=== PATIENT | female | born 1965 | race Caucasian/White ===

== ENCOUNTER → 2017-01-29 | Outpatient (CLI) | payer BC, OTHER ==
[~2017-01-29] VITALS: Ht 165.1 cm; Wt 99.8 kg
[~2017-01-29] MED LIST: BIOFREEZE118 ML TP; IBUPROFEN 200200 M1 PO; LEVOTHYROXINE0.05 MG PO; MOBIC15 MG PO; TRAMADOL 50 MG50 MG PO; TRAMADOL200 MG PO
--- NOTE | ~2017-01-29 | HPC ---
[facility] [place] [address] PAIN MANAGEMENT CONSULTATION Name: XIOMARA DIAZ [facility] [id number] Admission: 01/29/17 Attend Phys: Michael Jane DO Discharge: Date of : 65 Report #: [id number] THIS REPORT FOR: //name// CC: Eddi Jane HISTORY OF PRESENT ILLNESS: The patient is a very pleasant 51-year-old female, seen in consultation at the request of Dr. Carreno for evaluation of pain primarily in low back. The patient notes, it has been present "for years", but has been getting worse over the past 6 months without antecedent trauma and/or overuse. Pain is primarily at the belt line and below, does not radiate in her legs. She has no paresthesia, weakness, bowel or bladder continence changes. She relates the fact, that she had fallen at age 13, and had a "fractured tailbone", as the source of her chronic back pain. She has used Biofreeze, Advil, and massage. Physical therapy in April all with nominal efficacy. She describes continuous, steady, burning pain, that she rates anywhere from 5-9 on a 0-10 visual analog scale. Incidentally, she notes she has some chronic right knee pain, and just finished a series of 3 viscosupplementation injections about 2 weeks ago. The patient notes the pain is exacerbated with bending and standing, doing any chores, lifting and vacuuming with rotation. Gets some relief when she is recumbent. REVIEW OF SYSTEMS: Complete review of systems was attached to the chart, and was gone over with the patient. She is , smokes "socially" 2-3 cigarettes a day. Drinks alcohol socially. She is hypothyroid for which she takes Synthroid, otherwise enjoyed reasonably good health. As a child, she had a pectus excavatum surgical repair and a tonsillectomy in 1997. 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 Pain impact score is 50/70. PHYSICAL EXAMINATION: GENERAL: Reveals a 5 feet 3 inches, 230 pound female, in moderate distress. BMI is 36.6 kilograms per meter squared. Blood pressure is 116/74, pulse of 70, respirations are 20, room air oxygen saturation is 97%. NEUROLOGIC: Cranial nerves 2-12 are grossly intact. HEENT: Pupils are equal and reactive to light and accommodation. Extraocular muscles are intact. NECK: Thyroid is modestly enlarged, no nodules are noted. Cervical range of motion is full. Upper extremity strength is preserved. The patient notes that when she is standing, cervical flexion exacerbates some low back pain. HEART: Regular rhythmical without murmur. [facility] [address] [place] [address] PAIN MANAGEMENT CONSULTATION Name: XIOMARA DIAZ Room #: REG CL Broderick#: [id number] Admission: 01/29/17 Attend Phys: Michael Jane DO Discharge: Date of : 65 Report #: [id number] LUNGS: Clear to auscultation. ABDOMEN: She has endomorphic build. MUSCULOSKELETAL: Rises from the chair using armrest. Flexion is good to 90+ degrees. She is tender in the low back, specifically over the SI area. Rotation and sidebending slightly exacerbates low back pain. Lower extremity strength is generally symmetric at about 4/5 to all muscle groups tested. Patellar reflexes are diminished, they are 1/4 and symmetric without symmetric contraction. Achilles reflexes are 1/4 and symmetric. Straight leg raise is negative. Positive Lorenzo test bilaterally. Side bending and rotation again do exacerbate some low back pain. I reviewed the patient's diagnostic findings including MRI of the lumbar spine from 07/16/2016, she has mild multilevel spondylosis at L2-L3 and L3-L4, facet hypertrophy and arthrosis at L3-L4 through L5-S1. There is small amount of fluid in the facet joint at L3-L4 and L4-L5 compatible with degenerative synovitis. ASSESSMENT: Symptomatic lumbar spondylosis, lumbosacral spondylosis, and sacroiliac joint dysfunction by clinical exam. RECOMMENDATIONS: 1. Bilateral SI joint injections under fluoroscopy. 2. Physical therapy for core strengthening. 3. Meloxicam 15 mg 1 a day, tramadol 50 mg t.i.d. as needed for pain. 4. Follow up in 30 days for reevaluation and consideration for fluoroscopically guided facet joint injections if indicated clinically. Thank you for allowing me to participate in this patient's care. I will keep you abreast of her progress. PROCEDURE NOTE: Bilateral SI joint injections under fluoroscopy. PROCEDURE NOTE: After written and informed consent was obtained including risk of infection, nerve trauma, increased pain and weakness, the patient wishes to proceed. The patient was taken to the fluoroscopy suite, placed in the prone position. The sacroiliac joint was visualized using the C-arm, turned in an oblique fashion to align the joint. The skin overlying the area was cleansed with ChloraPrep. Skin wheal with Xylocaine was raised. A 22 gauge spinal needle was inserted into the inferior aspect of the joint. A low volume extension tubing was then attached to the needle after the stylet was removed. Negative aspiration was accomplished. A 1 mL of Omnipaque was injected which showed spread within the SI joint. 40 mg triamcinolone plus 2 mL of 0.5% preservative-free bupivacaine was injected into the joint. Needle was removed. Attention was then turned to the contralateral joint which was treated in an identical fashion. After both needles were removed the prep was washed off. Two Band-Aids were applied over the puncture sites. The patient was allowed to [address] [address] PAIN MANAGEMENT CONSULTATION Name: XIOMARA DIAZ Room #: REG CLI [facility]#: [id number] Admission: 01/29/17 Attend Phys: Michael Jane DO Discharge: Date of : 65 Report #: [id number] ambulate to the recovery room, monitored for an appropriate period of time, discharged in good and stable condition. By: [id number] Michael Jane DO /nt
[2017-01-29 11:23] VITALS: BP 116/70
== END ==
LOC: PAIN 07:03
DX: M53.3 Sacrococcygeal disorders, not elsewhere classified (principal); M47.817 Spondylosis without myelopathy or radiculopathy, lumbosacral region

== ENCOUNTER → 2017-06-29 | Outpatient (CLI) | payer BC, OTHER ==
[~2017-06-29] VITALS: Ht 165.1 cm; Wt 104.4 kg
--- NOTE | ~2017-06-29 | HPC ---
[facility] [place] [place] [address] PAIN MANAGEMENT CONSULTATION Name: XIOMARA DIAZ Room #: REG Maged Orr.#: [id number] Admission: 06/29/17 Attend Phys: Michael Jane DO Discharge: Date of : 65 Report #: [id number] THIS REPORT FOR: //name// CC: Eddi Jane DATE OF SERVICE: 06/29/2017 The patient is a 52-year-old female, prior seen in consultation 01/29/2017 diagnosed with bilateral SI joint mediated pain, lumbosacral spondylosis, was given bilateral SI joint injections and referred to Physical Therapy. Returns to pain clinic today noting she had very good relief greater than 80% for greater than 6 weeks, but pain began to recur. Pain is again in the bilateral low back, right, perhaps a little greater than left. PHYSICAL EXAMINATION: Otherwise unchanged. Positive Lorenzo test. The patient did not follow up with Physical Therapy. Long discussion with the patient today about therapeutic options. We have agreed to repeat the SI joint injection under fluoroscopy today with a caveat that the patient follow through with Physical Therapy. We will see the patient back in 6 weeks for reevaluation in consideration for a diagnostic block without steroid and referral for percutaneous fusion if indicated. ASSESSMENT: Symptomatic lumbosacral spondylosis, sacroiliac mediated pain. PROCEDURE: Bilateral SI joint injection under fluoroscopy. PROCEDURE NOTE: After written and informed consent was obtained including risk of infection, nerve trauma, increased pain and weakness, the patient wishes to proceed. The patient was taken to the fluoroscopy suite, placed in the prone position. The sacroiliac joint was visualized using the C-arm, turned in an oblique fashion to align the joint. The skin overlying the area was cleansed with ChloraPrep. Skin wheal with Xylocaine was raised. A 22 gauge spinal needle was inserted into the inferior aspect of the joint. A low volume extension tubing was then attached to the needle after the stylet was removed. Negative aspiration was accomplished. A 1 mL of Omnipaque was injected which showed spread within the SI joint. 40 mg triamcinolone plus 2 mL of 0.5% preservative-free bupivacaine was injected into the joint. Needle was removed. Attention was then turned to the contralateral joint which was treated in an identical fashion. After both needles were removed the prep was washed off. Two Band-Aids were applied over the puncture sites. The patient was allowed to [address] [address] PAIN MANAGEMENT CONSULTATION Name: XIOMARA DIAZ Lalito Room #: REG CLI [facility]#: [id number] Admission: 06/29/17 Attend Phys: Michael Jane DO Discharge: Date of : 65 Report #: [id number] ambulate to the recovery room, monitored for an appropriate period of time, discharged in good and stable condition. <ELECTRONICALLY SIGNED> By: Michael Jane DO 07/01/17 0802 [id number] 2047 Michael Jane DO /sumi
[2017-06-29 14:50] VITALS: BP 109/77
== END | disposition home or self-care (01) ==
LOC: PAIN 07:29
DX: M53.3 Sacrococcygeal disorders, not elsewhere classified (principal); M47.817 Spondylosis without myelopathy or radiculopathy, lumbosacral region; F17.210 Nicotine dependence, cigarettes, uncomplicated

== ENCOUNTER → 2018-01-14 | Outpatient (CLI) | payer BC, OTHER ==
[~2018-01-14] VITALS: Ht 165.1 cm; Wt 102.5 kg
[~2018-01-14] MED LIST changes: +DOANS
--- NOTE | ~2018-01-14 | HPC ---
[facility] [place] [place] [address] PAIN MANAGEMENT CONSULTATION Name: XIOMARA DIAZ Room #: REG REGINA Kirby.#: [id number] Admission: 01/14/18 Attend Phys: Michael Jane DO Discharge: Date of : 65 Report #: [id number] THIS REPORT FOR: //name// CC: Eddi Jane The patient is a 52-year-old female seen last fall, given bilateral SI joint injections and referred to physical therapy. Last summer in January 2017, she was given bilateral L5-S1 facet joint injections. She returns to pain clinic today noting pain is beginning to recur across the low back. She notes the pain is exacerbated with standing, walking, bending, pushing or pulling. She describes burning, constant nagging pain, gets up to 7-8 at the end of the day. Again, exacerbated bending forward and lifting. Gets some relief when she is recumbent. Pain has been off and on since 2013. She denies antecedent trauma or specific overuse. She has had good relief with prior injections, 60% relief for many months after SI joint injection, higher relief actually prior to L5-S1 facet joints. The patient is planning a month in [place] with her daughters, one is graduating from college and I think the other may be graduating from high school. She is anxious about doing a great deal of walking with her ongoing axial back pain. PHYSICAL EXAMINATION: Shows a 52-year-old female, BMI is modestly elevated 37.6 kg/m2. Blood pressure is on EMR, pulse 73, respirations 16. Alert and oriented to person, place and time, judged to be a reasonable historian. Rises from the chair using armrest. Diffuse tenderness across the low back. Pain is exacerbated with rotation and side bending as well as forward flexion. Tenderness at the base of the lumbar spine as well as in the SI area. Lower extremity strength is symmetric. Straight leg raise is negative. Positive Lorenzo test and Gaenslen's test bilaterally. Again, pain with rotation and side bending and palpation over the low facets. DIAGNOSTIC STUDIES: Including MRI of the lumbar spine from July 2016, were reviewed. She does have moderate facet hypertrophy, bilateral L5-S1 and actually she has a similar pathology at L4-L5. Ongoing tenderness over the SI joints as well. ASSESSMENT: 1. Symptomatic sacroiliac mediated pain. 2. Lumbosacral spondylosis without myelopathy (L5-S1 primary target for pain). RECOMMENDATIONS: Long discussion with the patient today about therapeutic options. Given that she is desirous of getting better, so she can go on a [facility] [address] [place] [address] PAIN MANAGEMENT CONSULTATION Name: XIOMARA DIAZ Room #: REG [facility] Broderick#: [id number] Admission: 01/14/18 Attend Phys: Michael Jane DO Discharge: Date of : 65 Report #: [id number] prolonged trip with a lot of walking next month, we have elected to actually proceed with both injections, bilateral SI as well as bilateral L5-S1 facet joints. Continue Meloxicam. She is loathe to take opiate analgesics and for this, we applaud her. PROCEDURE: Bilateral L5-S1 facet joint injection under fluoroscopy. PROCEDURE NOTE: After written informed consent was obtained, the patient was taken to the fluoroscopy suite, placed in prone position. After sterile prep and drape, skin wheal was raised. A 22-gauge stylet needle was placed to contact the inferior aspect of left L5-S1 facet joint. A trace amount of Omnipaque was injected, which showed spread within the joint. C-arm was turned obliquely to the right and procedure was repeated. Attention was then directed to the SI joints. Again, in the initial surgical prep and drape, a skin wheal was raised over the left SI joint and needle was placed to contact the inferior aspect of the left SI joint. Negative aspiration was accomplished. 1 mL of Omnipaque was injected, which showed spread within the joints, this was followed with 30 mg of triamcinolone plus 2 mL of 0.5% preservative-free bupivacaine. C-arm was turned obliquely to the right and procedure was repeated. After all four needles were removed, the area was cleansed, Band-Aids applied. The patient was allowed to ambulate to recovery room, monitored for an appropriate period of time, discharged in good and stable condition noting improvement of baseline pain. Rates subjective pain score is absent on discharge. Fluoroscopy time was 12 seconds. Follow up in 1 month for repeat injection if needed. <ELECTRONICALLY SIGNED> By: Michael Jane DO 01/18/18 0824 [id number] 1218 Michael Jane DO /nt
[2018-01-14 10:10] VITALS: BP 111/77
== END | disposition home or self-care (01) ==
LOC: PAIN 08:07
DX: M47.817 Spondylosis without myelopathy or radiculopathy, lumbosacral region (principal); M53.3 Sacrococcygeal disorders, not elsewhere classified; F17.210 Nicotine dependence, cigarettes, uncomplicated; Z88.8 Allergy status to other drugs, medicaments and biological substances; Z79.899 Other long term (current) drug therapy; Z98.890 Other specified postprocedural states

== ENCOUNTER → 2018-09-29 | Outpatient (CLI) | payer BC, OTHER ==
[~2018-09-29] VITALS: Ht 165.1 cm; Wt 103.4 kg
[~2018-09-29] MED LIST changes: +HYDROCODONE-AP1 EA11 PO; +MEDROLDOSEPACK PO
--- NOTE | ~2018-09-29 | HPC ---
[facility] [place] [address] PAIN MANAGEMENT CONSULTATION Name: XIOMARA DIAZ Room #: REG REGINA Kirby.#: [id number] Admission: 09/29/18 Attend Phys: Josee Grove MD Discharge: Date of : 65 Report #: [id number] THIS REPORT FOR: //name// CC: Eddi Grove DATE OF SERVICE: 09/29/2018 CHIEF COMPLAINT: Pain in the low back area. Wai HISTORY: The patient is a 53-year-old female who has been followed in the pain clinic by Dr. Michael Jane. This is my first time meeting with the patient. She has history of back pain, which has been problematic. She underwent SI joint injections and went to physical therapy. She also underwent facet joint injections by Dr. Jane. Overall, the patient did reasonably well. She is contemplating going on a trip to [facility] with her and other couples. Because of that, she would like to have an evaluation of her back with the possibility of undergoing treatment to help decrease her pain and discomfort. Notes that she has pain which is worse when she is standing and bends forward. Activities of daily living can increase her level of discomfort. Rates her pain today as an 8-9 or 8/10 at the end of the day. Notes that things that exacerbate her picking up items, lifting items, daily chores, bending. Notes that the pain improves when she is lying down or sitting. Areas primarily in the low back area on the left as well as the right. Denies any new trauma. She has been using meloxicam and feels that this medication is efficacious. She has been using medications to help control her pain on and off since 2013. ALLERGIES: CODEINE. MEDICATIONS: Meloxicam 15 mg 1 p.o. daily, Biofreeze topical p.r.n., ibuprofen, Advil 200 mg p.r.n., Synthroid 0.05 mg. PAST MEDICAL HISTORY: Hypothyroidism. PAST SURGICAL HISTORY: Pectus excavatum surgery in 1966, tonsillectomy 1998. 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 REVIEW OF SYSTEMS: Generally good health, wears contact lenses, headaches on and off, fatigue, weakness, memory loss, confusion, depression and insomnia. IMAGING: MRI of the lumbar spine dated 07/16/2016: 1. Mild posterior disk bulge, which causes very subtle effacement of the ventral thecal sac. No central canal or neural foraminal stenosis. Facets are unremarkable. [address] [address] PAIN MANAGEMENT CONSULTATION Name: XIOMARA DIAZ Room #: REG [facility].#: [id number] Admission: 09/29/18 Attend Phys: Josee Grove MD Discharge: Date of : 65 Report #: [id number] 2. L3-L4 disk desiccation without disk space narrowing. There is a small broad-based central disk protrusion which effaces the ventral thecal sac, but does not cause central canal or neural foraminal stenosis. Mild hypertrophy of the facet joints and fluid signal in both facets. 3. L4-L5 minimal endplate ____. No significant bulge. There is no central canal or neural foraminal stenosis. There is bilateral facet hypertrophy and a small amount of fluid signal in both sets. The ligamentum flavum measures 4.5 mm. The L4 nerve roots are unremarkable. 4. L5-S1, minimal disk bulge. There is no central canal or neural foraminal stenosis. There is moderate bilateral facet hypertrophy with mild ligamentum flavum thickening measuring 5 mm. PAIN CLINIC ASSESSMENT/PQRS: 1. Osteoarthritis. The patient does have some arthritic changes in the lower portion of her back. 2. Rheumatoid arthritis. The patient is not being treated for rheumatoid arthritis. 3. Height 5 feet 5 inches, weight 228 pounds, BMI is 37.9. 4. Vital signs: Blood pressure 128/65, pulse 70, respiratory rate 16, room air saturation 96%. 5. Pain intensity 8/10 at the end of the day. 6. Fall risk. The patient has not fallen in the last 3 months. 7. Blood thinner. The patient is not on a blood thinning medication. 8. History of hypertension. The patient is not being treated for hypertension. 9. Opioid greater than 6 weeks. The patient is not on an opioid regimen. 10. Risk of assessment tool, low for opioid use. 11. Functional assessment tool. 12. Recreational drug use. The patient denies use of recreational drug use. 13. Tobacco: The patient smokes cigarettes 1-2 cigarettes per day. Discussed the risks and benefits of smoking cessation. 14. Alcohol: The patient occasionally drinks alcoholic beverages. PHYSICAL EXAMINATION: GENERAL: The patient is a well-developed, well-nourished white female. Appears her stated age. She is alert and oriented x 3. Her affect is appropriate. Speech is fluent. HEENT: Normocephalic, atraumatic. Extraocular eye muscles intact. Sclerae nonicteric. Mucous membranes are moist. NECK: Without adenopathy or JVD. HEART: Regular rate, S1, S2. LUNGS: Clear to auscultation without rhonchi or rales. ABDOMEN: Nontender. EXTREMITIES: Upper extremity muscle strength judged to be 5/5 for the major muscle groups in the upper extremity. The patient without significant scoliosis, kyphosis or lordosis. The patient has some pain and discomfort in lower portion of her back with a trigger point areas noted in the left as well [facility] [address] [place] [address] PAIN MANAGEMENT CONSULTATION Name: XIOMARA DIAZ Room #: REG [facility].#: [id number] Admission: 09/29/18 Attend Phys: Josee Grove MD Discharge: Date of : 65 Report #: [id number] as the right posterior superior iliac spine areas. The patient is not having pain radiating down into her legs. Anterior and posterior spring tests are negative. Gerardo sign is negative today. IMPRESSION: 1. Myofascial pain, low back area. 2. Hypothyroidism. RECOMMENDATIONS: We discussed treatment options with the patient. The risks and benefits of trigger point injection to the affected trigger points in the low back area were discussed. Possible complications of the procedure, which could include but are not limited to infection, worsening pain, no improvement in pain, nerve damage, bleeding. The patient elects to proceed. PROCEDURE NOTE: The patient was assisted in getting on the bed. She sat in a perpendicular position. A chair was placed under her feet. Her back was sterilely prepped. The patient leaned forward as though she ____ tie her shoes. Palpation in the left as well as the right posterior superior iliac spine area did reproduce pain and discomfort, which the patient states is what seems to be the nidus of her pain. We did wash the patient's back with a chlorhexidine solution. It was allowed to dry. A trigger point on the left side was noted. A 25-gauge needle was then advanced into the area. It was advanced into the area of the levators of the latissimus dorsi and gluteus aron. The patient states this did reproduce her discomfort. Aspiration was negative. A total of 8 mL of 0.5% bupivacaine was injected with 80 mg Depo-Medrol. The patient tolerated the procedure well. The right side was treated in a like fashion. A 25-gauge needle was then advanced into the area of the trigger point, which was in the area of the gluteus aron and latissimus dorsi. Aspiration was negative. A total of 7 mL of 0.5% bupivacaine and 80 mg Depo-Medrol was injected. The patient tolerated the procedure well. There were no complications. The patient's pain was 2-3 at the time of discharge. She had no complications. She will follow up in the future. Because the patient is going out of country, a script was provided for hydrocodone 7.5 mg 1 p.o. b.i.d. as needed. She was also provided with Meloxicam 15 mg 1 p.o. every day and a Medrol Dosepak, which the patient will take should she start to notes the worsening of her pain during her trip. Hopefully, she will have a good trip. We would like to thank you for letting us participate in her care. We hope she continues to improve. By: [id number] Josee Grove MD /sumi
[2018-09-29 10:19] VITALS: BP 128/65
--- NOTE | 2018-09-29 10:24 | NUR ---
Pain Clinic Assessment: 1. History of Osteoarthritis: YES History of Rheumatoid Arthritis: NO 2. Height: 5 ft. 5 in. 165.1 cm. Weight: 228.0 lb. oz. 103.420 kg. Patient's BMI: 37.9 3. Vital Signs: BP: 128/65 Pulse: 70 Resp: 16 Temp: 02 Sat: 96 ECG Mon: 4. Pain Intensity: 8 END OF DAY 5. Fall Risk: Dizziness: N Needs help standing or walking: N Fallen in the last 3 months: N Fall risk comments: 6. Patient on Blood Thinner: None 7. History of Hypertension: N 8. Opioid Therapy greater than 6 weeks: N Opiate Contract Signed: 9. Risk Assessment Tool Provided: LOW 10. Functional Assessment Tool: 11. Recreational Drug Use: Never Drug Type: Tobacco Use: Current Some Day Smoker Tobacco Type: Cigarettes Amount or Packs/day: 1-2 CIGS How Many Years: Alcohol Use: Yes Frequency: Special Occasions Quant:
== END | disposition home or self-care (01) ==
LOC: PAIN 07:14
DX: M79.18 Myalgia, other site (principal); G89.29 Other chronic pain; E03.9 Hypothyroidism, unspecified; F17.210 Nicotine dependence, cigarettes, uncomplicated; Z98.890 Other specified postprocedural states; Z88.6 Allergy status to analgesic agent; Z79.899 Other long term (current) drug therapy